=== PATIENT | female | born 1955 | race Hispanic/Latino ===

== ENCOUNTER 2018-12-07 20:07 | Emergency (ER) | payer OTHER ==
[2018-12-07] MEDS ORDERED: SODIUM CHLORIDE 0.9% 1000ML 1,000 ML IV ONE ×2 (20:39→20:50)
[2018-12-07] MEDS ORDERED: METOCLOPRAMIDE 10 MG/2 ML VIAL ONE (20:50)
[2018-12-07] MEDS ORDERED: ONDANSETRON HCL 4 MG/2 ML VIAL ONE (20:50)
[2018-12-07 20:52] LABS: BASOPHILS % (AUTO) 0.2 % (0.0-5.0); HEMATOCRIT 38.7 % (36-48); LYMPHOCYTES % (AUTO) 36.5 % (21.0-51.0); MEAN CORPUSCULAR HEMOGLOBIN 30.2 pg (27.0-33.0); MEAN CORPUSCULAR HGB CONC 33.4 g/dL (32.0-36.0); MEAN CORPUSCULAR VOLUME 90.4 fL (79-99); MONOCYTES % (AUTO) 6.1 % (3.0-13.0); NEUTROPHILS % (AUTO) 54.2 % (40.0-77.0); NUCLEATED RED BLOOD CELLS 0.1 % (0.0-0.19); PLATELET COUNT (AUTO) 258 K/uL (130-400); RED BLOOD CELL COUNT(AUTO) 4.28 MIL/uL (4.00-5.50); WHITE BLOOD COUNT (AUTO) 9.4 K/uL (4.8-10.8)
[2018-12-07 20:57] LABS: APPEARANCE,URINE Clear (CLEAR); BILIRUBIN,URINE Negative (NEGATIVE); COLOR,URINE Yellow (YELLOW); GLUCOSE, URINE (UA) Negative (NEGATIVE); INR 0.94 (0.85-1.15); KETONES,URINE Negative (NEGATIVE); LEUKOCYTE ESTERASE ,URINE Trace (NEGATIVE); NITRATE,URINE Negative (NEGATIVE); OCCULT BLOOD,URINE Negative (NEGATIVE); PARTIAL THROMBOPLASTIN TIME 27.5 SEC (26.3-35.5); PH,URINE 6.5 (5.0-8.0); PROTEIN,URINE Negative (NEGATIVE); PROTHROMBIN TIME 9.9 SEC (9.6-11.6)
[2018-12-07 21:00] LABS: CREATININE 0.5 mg/dL (0.5-1.5); POTASSIUM 3.9 mmol/L (3.5-5.1)
[2018-12-07 21:06] LABS: ALBUMIN 3.6 g/dL (3.5-5.0); BILIRUBIN,TOTAL 0.3 mg/dL (0.2-1.0); TOTAL PROTEIN, SERUM 7.5 g/dL (6.0-8.3)
[2018-12-07 21:17] LABS: BACTERIA,URINE Few /HPF (None Seen); RBC,URINE None Seen /HPF (0-1); WBC,URINE 0-1 /HPF (0-1)
[2018-12-07] MEDS ORDERED: IOHEXOL-350 75 ML VIAL IV ONE (21:32)
[2018-12-07] MEDS ORDERED: LEVOFLOXACIN 500 MG TABLET ONE (22:12)
[2018-12-07] MEDS ORDERED: METRONIDAZOLE 500 MG TABLET ONE (22:12)
[2018-12-07] MEDS ORDERED: KETOROLAC TROMETHAMINE 30MG/ML ONE (22:12)
== END 2018-12-07 23:25 | disposition home or self-care (01) ==
LOC: EDH 20:07
DX: K57.92 Diverticulitis of intestine, part unspecified, without perforation or abscess without bleeding (principal); E86.9 Volume depletion, unspecified
CPT/HCPCS: 36415; 74177; 80053; 81001; 82550; 83605; 83690; 84484; 85025; 85610; 85730; 96361; 96374; 96375; 99285; J1885; J2405; J2765; J7030 ×2; Q9967

== ENCOUNTER → 2022-09-25 | Outpatient (CLI) | payer OTHER | END | disposition home or self-care (01) | LOC: RAH 13:04 | PROVIDERS: ATTEND Internal Medicine | DX: N64.4 Mastodynia (principal) | CPT/HCPCS: 76641; 77066 ==

== ENCOUNTER 2023-10-15 07:09 | Observation (INO) | payer OTHER ==
[2023-10-10 09:41] LABS: BASOPHILS # (AUTO) 0.04 K/uL (0.00-0.20); BASOPHILS % (AUTO) 0.6 % (0.0-5.0); EOSINOPHILS # (AUTO) 0.24 K/uL (0.00-0.70); EOSINOPHILS % (AUTO) 3.6 % (0.0-8.0); HEMATOCRIT 39.2 % (36-48); IMMATURE GRANULOCYTE ABSOLUTE 0.01 K/uL (0-1); LYMPHOCYTES % (AUTO) 44.9 % (21.0-51.0); MEAN CORPUSCULAR HEMOGLOBIN 29.4 pg (27.0-33.0); MEAN CORPUSCULAR HGB CONC 32.1 g/dL (32.0-36.0); MEAN CORPUSCULAR VOLUME 91.4 fL (79-99); MONOCYTES # (AUTO) 0.5 K/uL (0.1-1.0); MONOCYTES % (AUTO) 7.7 % (3.0-13.0); NEUTROPHILS # (AUTO) 2.8 K/uL (1.8-7.7); PLATELET COUNT (AUTO) 279 K/uL (130-400); RED BLOOD CELL COUNT(AUTO) 4.29 MIL/uL (4.00-5.50); RED CELL DISTRIBUTION WIDTH 13.8 % (11.0-15.5); WHITE BLOOD COUNT (AUTO) 6.6 K/uL (4.8-10.8)
[2023-10-10 09:45] LABS: ADD UA MICROSCOPIC YES; APPEARANCE,URINE CLEAR (CLEAR); BILIRUBIN,URINE NEGATIVE (NEGATIVE); COLOR,URINE YELLOW (YELLOW); GLUCOSE, URINE (UA) NEGATIVE (NEGATIVE); KETONES,URINE NEGATIVE (NEGATIVE); LEUKOCYTE ESTERASE ,URINE 25 Leu/uL (NEGATIVE); NITRATE,URINE NEGATIVE (NEGATIVE); OCCULT BLOOD,URINE NEGATIVE (NEGATIVE); PROTEIN,URINE NEGATIVE (NEGATIVE); UROBILINOGEN,URINE 0.2 mg/dL (0.2-1.0)
[2023-10-10 09:58] LABS: ALBUMIN 3.5 g/dL (3.5-5.0)
[2023-10-10 10:21] LABS: MUCUS,URINE RARE LPF (None Seen); SQUAMOUS EPITHELIAL CELL,UR FEW /HPF (0-2)
[~2023-10-15] VITALS: Ht 149.9 cm; Wt 78.0 kg
[2023-10-15] VITALS (34 sets, daily range): BP systolic 98–140; BP diastolic 39–73; PULSE 59–96; RESP 9–20; O2SAT 97–98
[~2023-10-15 07:09] MED LIST: AEC81 PO; ATOR-2 PO; BETA1TAB18 PO; EZET10TA48 PO; LIRA0.6P2 SQ; LISI20TA24 PO; METF-444 PO; OMEP20CA12 PO; SERT-439 PO; calcium PO; fish oil PO; glucosamine PO; tylenol arthritis PO; vit c PO; vitamin d3 PO
[2023-10-15] MEDS ORDERED: TRANEXAMIC ACID 1000MG/10ML ONE (07:36)
[2023-10-15] MEDS: 0.9%NACL 1000ML 1,000 ML IV ONE (07:58)
[2023-10-15] MEDS: CEFAZOLIN SODIUM 2 GM VIAL ONE (07:58)
[2023-10-15] MEDS ORDERED: LIDOCAINE PF 100MG/5ML (2%) SYRINGE 5ML ONE (08:20)
[2023-10-15] MEDS ORDERED: FENTANYL CITRATE PF 50 MCG/1 ML 2ML VIAL ONE (08:21)
[2023-10-15] MEDS ORDERED: PROPOFOL 10 MG/ML 20ML VIAL IV ONE (08:21)
[2023-10-15] MEDS ORDERED: MIDAZOLAM HCL 1 MG/ML 2ML VIAL ONE (08:21)
[2023-10-15] MEDS ORDERED: ROCURONIUM BROMIDE 10MG/1ML 5ML VL ONE (08:21)
[2023-10-15] MEDS ORDERED: ROPIVACAINE 0.5% 5MG/ML 30ML ONE (08:25)
[2023-10-15] MEDS ORDERED: PHENYLEPHRINE HCL 10 MG/ML 1ML VIAL IV ONE (08:36)
[2023-10-15] MEDS ORDERED: ONDANSETRON 4MG INJ ONE (08:38)
[2023-10-15] MEDS ORDERED: DEXAMETHASONE SOD PHOSPHATE 10MG/ML 1ML VIAL ONE ×2 (08:38→10:26)
[2023-10-15] MEDS ORDERED: EPHEDRINE SULFATE 50 MG/ML AMPULE ONE (08:51)
[2023-10-15] MEDS: DOCUSATE SODIUM 100 MG CAP PO SCH (09:00)
[2023-10-15] MEDS: POLYETHYLENE GLYCOL 3350 17 GM POWD.PACK PO SCH (09:00)
[2023-10-15] MEDS ORDERED: ONDANSETRON 4MG INJ IVP PRN (09:00)
[2023-10-15] MEDS ORDERED: POTASSIUM CHLORIDE 20MEQ/100ML 100 ML IV PRN (09:00)
[2023-10-15] MEDS ORDERED: POTASSIUM CHLORIDE 10% ELIXIR 20 MEQ/15 ML UDCUP PO PRN (09:00)
[2023-10-15] MEDS ORDERED: CALCIUM CARB 500MG PO PRN (09:00)
[2023-10-15] MEDS ORDERED: FERROUS FUMARATE 324 MG TABLET PO PRN (09:00)
[2023-10-15] MEDS: KETOROLAC 30MG VIAL (30MG/ML) ONE (09:03)
[2023-10-15] MEDS: ROPIVACAINE 0.5% 5MG/ML 30ML ONE (09:03)
[2023-10-15] MEDS: HYDROMORPHONE 1 MG INJ ONE (09:30)
[2023-10-15] MEDS: ACETAMINOPHEN 1,000 MG/100 ML VIAL IV ONE (09:30)
[2023-10-15] MEDS: KETOROLAC 15MG/ML VIAL (15MG/ML) IV SCH (09:30)
[2023-10-15] MEDS: 0.9%NACL 1000ML 1,000 ML IV SCH (09:30)
[2023-10-15] MEDS ORDERED: NEOSTIGMINE METHYLSULFATE 1MG/ML IV ONE (10:07)
[2023-10-15] MEDS ORDERED: GLYCOPYRROLATE 0.2 MG/ML 5 ML VIAL ONE (10:07)
[2023-10-15] MEDS: INSULIN HUMULIN R 100 UNIT/ML 3ML SQ SCH (11:30)
[2023-10-15] MEDS: KETOROLAC 15MG/ML VIAL (15MG/ML) ONE (12:33)
[2023-10-15] MEDS: TRAMADOL HCL 50 MG TABLET ONE (12:35)
[2023-10-15] MEDS: HYDROCODONE/ACETAMINOPHEN 10/325 MG TAB ONE (13:53)
[2023-10-15] MEDS: GABAPENTIN 100 MG CAPSULE PO SCH (14:00)
[2023-10-15] MEDS: CEFAZOLIN SODIUM 2 GM VIAL IVPB SCH (16:14)
[2023-10-16] VITALS (7 sets, daily range): BP systolic 92–119; BP diastolic 50–65; PULSE 57–81; RESP 16–18; O2SAT 98
[2023-10-16 04:38] LABS: HEMATOCRIT 30.9 % (36-48); MEAN CORPUSCULAR HEMOGLOBIN 30.2 pg (27.0-33.0); MEAN CORPUSCULAR HGB CONC 32.7 g/dL (32.0-36.0); MEAN CORPUSCULAR VOLUME 92.5 fL (79-99); RED BLOOD CELL COUNT(AUTO) 3.34 MIL/uL (4.00-5.50); WHITE BLOOD COUNT (AUTO) 9.7 K/uL (4.8-10.8)
[2023-10-16 04:47] LABS: CREATININE 0.8 mg/dL (0.5-1.0); POTASSIUM 3.7 mmol/L (3.5-5.1)
[2023-10-16] MEDS: KCL 20 MEQ ERTAB PO PRN (06:28)
[2023-10-16] MEDS: ASPIRIN 325MG EC TAB PO SCH (08:04)
[2023-10-16] MEDS: HYDROCODONE/ACETAMINOPHEN 5/325 MG TAB PO PRN (08:05)
[2023-10-16] MEDS: CYCLOBENZAPRINE HCL 10 MG TABLET PO PRN (13:51)
[2023-10-16] MEDS: EZETIMIBE 10 MG TAB PO SCH (20:40)
[2023-10-16] MEDS: ATORVASTATIN 40 MG TABLET PO SCH (20:41)
[2023-10-16] MEDS: TRAMADOL HCL 50 MG TABLET PO PRN (20:56)
[2023-10-17 04:05] VITALS: BP 121/57; PULSE 65; RESP 16
[2023-10-17] MEDS: HYDROCODONE/ACETAMINOPHEN 5/325 MG TAB PO PRN (04:51)
[2023-10-17] MEDS ORDERED: KETOROLAC 15MG/ML VIAL (15MG/ML) IV PRN (07:30)
[2023-10-17 07:36] VITALS: BP 115/68; PULSE 65; RESP 18
[2023-10-17] MEDS: SERTRALINE HCL 50 MG TABLET PO SCH (08:46)
[2023-10-17] MEDS: PANTOPRAZOLE 40 MG TAB DR PO SCH (08:46)
[2023-10-17] MEDS: METFORMIN HCL 500 MG TABLET PO SCH (08:46)
[2023-10-17] MEDS: LISINOPRIL 20 MG TABLET PO SCH (08:47)
[2023-10-17] MEDS: LIRAGLUTIDE 0.6 MG SQ SCH (08:49)
[2023-10-17 12:00] VITALS: BP 103/71; PULSE 63; RESP 17
[2023-10-17 16:00] VITALS: BP 105/59; PULSE 69; RESP 18
[2023-10-17] MEDS ORDERED: CYCL-309 PO (16:18)
[2023-10-17] MEDS ORDERED: HYDR-4060 PO (16:18)
[2023-10-17] MEDS ORDERED: DOCU-116 PO (16:18)
[2023-10-17] MEDS ORDERED: GABA100C PO (16:18)
[2023-10-17] MEDS ORDERED: ASPI-891 PO (16:18)
[2023-10-18] MEDS ORDERED: VIT C PO SCH (09:00)
[2023-10-18] MEDS ORDERED: [UNRECOGNIZED DRUG - OTHER] PO SCH (09:00)
[2023-10-18] MEDS ORDERED: CALCIUM PO SCH (09:00)
[2023-10-18] MEDS ORDERED: FISH OIL PO SCH (09:00)
[2023-10-18] MEDS ORDERED: BISACODYL 10 MG SUPP.RECT RC PRN (09:00)
[2023-10-18] MEDS ORDERED: MINERALS PO SCH (09:00)
[2023-10-18] MEDS ORDERED: GLUCOSAMINE PO SCH (09:00)
[2023-10-18] MEDS ORDERED: VIT A C PO SCH (09:00)
[2023-10-18] MEDS ORDERED: LUTEIN PO SCH (09:00)
== END 2023-10-17 18:05 ==
LOC: DAH 07:09 → DAHIP 07:10 → DAH 07:10 → 4AH 16:00
PROVIDERS: ADMIT Student in an Organized Health Care Education/Training Program; ATTEND Student in an Organized Health Care Education/Training Program
DX: M17.11 Unilateral primary osteoarthritis, right knee (principal); D62 Acute posthemorrhagic anemia; Z79.899 Other long term (current) drug therapy; Z98.890 Other specified postprocedural states
CPT/HCPCS: 82040; 85025; 84134; 86140; 81001; 36415 ×2; 93005; 87641; 27447; 64447; 96365; 96366 ×2; 96375; 82948 ×10; 73560; 97161; 97116 ×5; 96376; 80048; 85027; 97530 ×5; J1815 ×2; G0378 ×52; A4663; A4215 ×2; J3010; J1170; J3490 ×4; J1100 ×2; J7030; J2001; J2250; J2704; J2405; J1885 ×3; J2710; J2795 ×2; J2371; J0690 ×3; G0168; A4649 ×2; A4930; C1713; C1776; A6255; A5120; A4223; A4222; A4221